=== PATIENT | female | born 1950 | race Caucasian/White ===

== ENCOUNTER 2017-11-11 23:20 | Inpatient (IN) | payer MEDICARE, OTHER ==
[2017-11-11] MEDS ORDERED: fentaNYL 100 MCG/2 ML SDV IVPUSH ONE (23:46)
--- NOTE | 2017-11-11 23:49 | EDM.PDOC ---
ED HPI GENERAL MEDICAL PROBLEM - General Chief Complaint: Lower Extremity Injury/Pain Stated Complaint: FALL INJURED RIGHT HIP AND EAR Time Seen by Provider: 11/11/17 23:47 Source of Information: Reports: Patient History Limitations: Reports: No Limitations - History of Present Illness INITIAL COMMENTS - FREE TEXT/NARRATIVE: Brought by family, coming by her and 2 daughters Chief complaint Fall, pain right hip History of present illness 66-year-old female, [place] a [place], Family reunion, she is from [facility] Unable to get up, unable to weight-bear on the right hip. She has a small bruise to the right ear as well. No chest injury no head injury otherwise. - Related Data Allergies Allergy/AdvReac Type Severity Reaction Status Date / Time No Known Allergies Allergy Verified 11/11/17 23:53 Review of Systems - Review of Systems Review Of Systems: See Below Constitutional: Reports: No Symptoms Eyes: Reports: No Symptoms Ears: Reports: Other (Small bruise on right ear) Nose: Reports: No Symptoms Mouth/Throat: Reports: No Symptoms Respiratory: Reports: No Symptoms Cardiovascular: Reports: No Symptoms GI/Abdominal: Reports: No Symptoms Genitourinary: Reports: No Symptoms Musculoskeletal: Reports: Joint Pain. Denies: Neck Pain, Back Pain, Joint Swelling (Right hip) Skin: Reports: No Symptoms Neurological: Reports: No Symptoms ED EXAM, GENERAL - Physical Exam Exam: See Below Exam Limited By: No Limitations General Appearance: Alert, Moderate Distress, Other (She's uncomfortable, lying on the stretcher) Eye Exam: Bilateral Eye: Normal Inspection Ears: Normal External Exam, Hearing Grossly Normal, Normal TMs Nose: Normal Inspection Throat/Mouth: Normal Inspection Head: Other (Small bruise)) Neck: Normal Inspection, Non-Tender, Full Range of Motion Respiratory/Chest: No Respiratory Distress, No Accessory Muscle Use, Chest Non- Tender Cardiovascular: Normal Peripheral Pulses, Regular Rate, Rhythm GI/Abdominal: Normal Bowel Sounds, Soft, Non-Tender, No Distention Extremities: Leg Pain (Right hip without swelling), Other (Unable to actively move the hip, passive movement also. Uncomfortable) Neurological: Alert, Oriented, Normal Gait Psychiatric: Normal Affect, Normal Mood Skin Exam: Warm, Dry, Intact, Normal Color, No Rash Course - Vital Signs Last Recorded V/S: Last Vital Signs Temp 36.7 C 11/11/17 23:40 Pulse 64 11/11/17 23:41 Resp 16 11/11/17 23:41 BP 174/67 H 11/11/17 23:41 Pulse Ox 95 11/11/17 23:41 - Orders/Labs/Meds Orders: Active Orders 24 hr Category Date Time Status Insert Urinary Catheter [OM.PC] Q24H Care 11/12/17 01:15 Ordered Peripheral IV Care [RC] . DIRECTED Care 11/11/17 23:45 Active Urinary Catheter Assessment [RC] ASDIRECTED Care 11/12/17 01:12 Active Chest 1V Frontal [CR] Stat Exams 11/12/17 00:01 Taken Hip Min 2V or 3V w Pelvis Rt [CR] Stat Exams 11/12/17 00:01 Taken HYDROmorphone [Dilaudid] Med 11/12/17 01:11 Once 0.5 mg IVPUSH ONETIME ONE Sodium Chloride 0.9% [Saline Flush] Med 11/11/17 23:45 Active 10 ml FLUSH ASDIRECTED PRN Peripheral IV Insertion Adult [OM.PC] Routine Oth 11/11/17 23:45 Ordered Medication Orders Sodium Chloride (Saline Flush) 10 ml FLUSH ASDIRECTED PRN PRN Reason: Keep Vein Open Last Admin: 11/11/17 23:54 Dose: 10 ml Labs: Laboratory Tests 11/11/17 11/11/17 Range/Units 23:50 23:50 WBC 7.9 (4.5-11.0) K/uL RBC 3.99 (3.30-5.50) M/uL Hgb 12.5 (12.0-15.0) g/dL Hct 37.0 (36.0-48.0) % MCV 93 (80-98) fL MCH 31 (27-31) pg MCHC 34 (32-36) % Plt Count 315 (150-400) K/uL Sodium 136 L (140-148) mmol/L Potassium 4.0 (3.6-5.2) mmol/L Chloride 101 (100-108) mmol/L Carbon Dioxide 28 (21-32) mmol/L Anion Gap 11.0 (5.0-14.0) mmol/L BUN 20 H (7-18) mg/dL Creatinine 0.9 (0.6-1.0) mg/dL Est Cr Clr Drug Dosing 56.08 mL/min Estimated GFR (MDRD) > 60 (>60) Glucose 96 (74-106) mg/dL Calcium 8.8 (8.5-10.1) mg/dL Meds: Medications Generic Name Dose Route Start Last Admin Trade Name Freq PRN Reason Stop Dose Admin Sodium Chloride 10 ml 11/11/17 23:45 11/11/17 23:54 Saline Flush FLUSH 10 ml ASDIRECTED PRN Administration Keep Vein Open Discontinued Medications Generic Name Dose Route Start Last Admin Trade Name Freq PRN Reason Stop Dose Admin Fentanyl 100 mcg 11/11/17 23:46 11/11/17 23:53 Sublimaze IVPUSH 11/11/17 23:47 100 mcg ONETIME ONE Administration - Re-Assessments/Exams Free Text/Narrative Re-Assessment/Exam: 11/11/17 23:52 66-year-old female with significant pain and limited range of motion and unable to weight-bear because of right hip injury Intravenous saline, fentanyl 100 g X-rays 11/12/17 01:13 Undisplaced transverse femoral neck fracture Welch catheter One-way chest clear Admitting labs Hydromorphone 0.5 mg IV Consult to Dr. Kaye, admit, nothing by mouth Departure - Departure Time of Disposition: 01:14 Disposition: Admitted As Inpatient 67 Condition: Good Clinical Impression: Fracture of femoral neck, right, closed Qualifiers: Encounter type: initial encounter Qualified Code(s): S72.001A - Fracture of unspecified part of neck of right femur, initial encounter for closed fracture - Discharge Information Referrals: PCP,None [Primary Care Provider] - Forms: ED Department Discharge - My Orders Last 24 Hours: My Active Orders 11/11/17 23:45 Peripheral IV Care [RC] . DIRECTED Sodium Chloride 0.9% [Saline Flush] 10 ml FLUSH ASDIRECTED PRN Peripheral IV Insertion Adult [OM.PC] Routine 11/12/17 00:01 Chest 1V Frontal [CR] Stat Hip Min 2V or 3V w Pelvis Rt [CR] Stat 11/12/17 01:11 HYDROmorphone [Dilaudid] 0.5 mg IVPUSH ONETIME ONE 11/12/17 01:12 Urinary Catheter Assessment [RC] ASDIRECTED 11/12/17 01:15 Insert Urinary Catheter [OM.PC] Q24H - Assessment/Plan Last 24 Hours: My Active Orders 11/11/17 23:45 Peripheral IV Care [RC] . DIRECTED Sodium Chloride 0.9% [Saline Flush] 10 ml FLUSH ASDIRECTED PRN Peripheral IV Insertion Adult [OM.PC] Routine 11/12/17 00:01 Chest 1V Frontal [CR] Stat Hip Min 2V or 3V w Pelvis Rt [CR] Stat 11/12/17 01:11 HYDROmorphone [Dilaudid] 0.5 mg IVPUSH ONETIME ONE 11/12/17 01:12 Urinary Catheter Assessment [RC] ASDIRECTED 11/12/17 01:15 Insert Urinary Catheter [OM.PC] Q24H
[2017-11-11] MEDS: Sodium Chloride 0.9% 10 ML Syringe FLUSH PRN (23:54)
[2017-11-12] MEDS ORDERED: HYDROmorphone 0.5 MG/0.5 ML Syringe IVPUSH ONE (01:11)
--- NOTE | 2017-11-12 01:18 | PCM.HP ---
H&P History of Present Illness - General Date of Service: 11/12/17 Source of Information: Patient History Limitations: Reports: No Limitations - History of Present Illness Initial Comments - Free Text/Narative: 66-year-old female with past medical history of depression came to the ED with the complaining of fall. [place] and landed on the right lower extremity. Since then patient unable to get up and unable to put weight on the right lower extremity. Patient reports that the pain is 4-5/10 intensity. Patient received 1 dose of fentanyl, 1 dose of Dilaudid in the ED. Patient denies any chest pain, exertional chest pain, breathing difficulty, headaches, dizziness, lightheadedness. Patient denies any head injury, loss of consciousness. Patient denies any abnormal shaking movements. Patient is Compliment with blood pressure medications. In the ED patient lab results and electrolytes are at baseline. Received pain medication and IV fluids. Other review of systems are not significant. - Related Data Allergies/Adverse Reactions: Allergies Allergy/AdvReac Type Severity Reaction Status Date / Time No Known Allergies Allergy Verified 11/11/17 23:53 Home Medications: Home Meds Calcium Carb/Magnesium Cmb #10 [Jovany-Mag] 1 tab PO DAILY 11/12/17 [History] Carbidopa/Levodopa [Carbidopa-Levodopa 25-100 Tab] 1 tab PO BEDTIME 11/12/17 [ History] Cholecalciferol (Vitamin D3) [Vitamin D3] 2,000 unit PO DAILY 11/12/17 [History] Citalopram Hydrobromide [Celexa] 20 mg PO BEDTIME 11/12/17 [History] Cranberry 500 mg PO DAILY 11/12/17 [History] Past Medical History Cardiovascular History: Reports: Heart Murmur [employer] History: Reports: Musculoskeletal History: Reports: Osteoarthritis Psychiatric History: Reports: Depression - Past Surgical History GI Surgical History: Reports: Colonoscopy Social & Family History - Family History Family Medical History: Noncontributory - Tobacco Use Smoking Status *Q: Never Smoker - Caffeine Use Caffeine Use: Reports: Coffee - Alcohol Use Days Per Week of Alcohol Use: 3 Number of Drinks Per Day: 1 Total Drinks Per Week: 3 - Recreational Drug Use Recreational Drug Use: No H&P Review of Systems - Review of Systems: Review Of Systems: See Below General: Denies: Fever, Chills HEENT: Denies: Contact Lenses, Dysphasia Pulmonary: Denies: Shortness of Breath, Wheezing, Pleuritic Chest Pain, Sputum, Hemoptysis Cardiovascular: Denies: Chest Pain, Palpitations, Dyspnea on Exertion, Orthopnea , PND, Edema, Lightheadedness Gastrointestinal: Denies: Abdominal Pain, Anorexia Genitourinary: Denies: Dysuria, Frequency Musculoskeletal: Reports: Leg Pain. Denies: Neck Pain, Shoulder Pain Skin: Denies: Cyanosis, Jaundice Hematologic/Lymphatic: Denies: Anemia, Easy Bleeding Exam - Exam Exam: See Below - Vital Signs Vital Signs: Last Vital Signs Temp 36.7 C 11/11/17 23:40 Pulse 64 11/11/17 23:41 Resp 16 11/11/17 23:41 BP 174/67 H 11/11/17 23:41 Pulse Ox 95 11/11/17 23:41 Weight: 61.235 kg - Exam General: Alert, Oriented Neck: Supple, Trachea Midline Lungs: Clear to Auscultation, Normal Respiratory Effort Cardiovascular: Regular Rate, Regular Rhythm Extremities: Leg Pain, Limited Range of Motion, Increased Warmth Skin: Warm, Dry, Intact - Patient Data Lab Results Last 24 hrs: Laboratory Results - last 24 hr 11/11/17 11/11/17 Range/Units 23:50 23:50 WBC 7.9 (4.5-11.0) K/uL RBC 3.99 (3.30-5.50) M/uL Hgb 12.5 (12.0-15.0) g/dL Hct 37.0 (36.0-48.0) % MCV 93 (80-98) fL MCH 31 (27-31) pg MCHC 34 (32-36) % Plt Count 315 (150-400) K/uL Sodium 136 L (140-148) mmol/L Potassium 4.0 (3.6-5.2) mmol/L Chloride 101 (100-108) mmol/L Carbon Dioxide 28 (21-32) mmol/L Anion Gap 11.0 (5.0-14.0) mmol/L BUN 20 H (7-18) mg/dL Creatinine 0.9 (0.6-1.0) mg/dL Est Cr Clr Drug Dosing 56.08 mL/min Estimated GFR (MDRD) > 60 (>60) Glucose 96 (74-106) mg/dL Calcium 8.8 (8.5-10.1) mg/dL Result Diagrams: 11/11/17 23:50 11/11/17 23:50 - Problem List (1) Fracture of femoral neck, right, closed SNOMED Code(s): 921384935 ICD Code: S72.001A - FRACTURE OF UNSP PART OF NECK OF RIGHT FEMUR, INIT Status: Acute Current Visit: Yes Qualifiers: Encounter type: initial encounter Qualified Code(s): S72.001A - Fracture of unspecified part of neck of right femur, initial encounter for closed fracture (2) Restless leg syndrome SNOMED Code(s): 04422570 ICD Code: G25.81 - RESTLESS LEGS SYNDROME Status: Acute Current Visit: Yes (3) Restless leg syndrome SNOMED Code(s): 65182363 ICD Code: G25.81 - RESTLESS LEGS SYNDROME Status: Acute Current Visit: Yes (4) Depression SNOMED Code(s): 03266653 ICD Code: F32.9 - MAJOR DEPRESSIVE DISORDER, SINGLE EPISODE, UNSPECIFIED Status: Acute Current Visit: Yes Problem List Initiated/Reviewed/Updated: Yes Orders Last 24hrs: Active Orders 24 hr Category Date Time Status Insert Urinary Catheter [OM.PC] Q24H Care 11/12/17 01:15 Ordered Peripheral IV Care [RC] . DIRECTED Care 11/11/17 23:45 Active Urinary Catheter Assessment [RC] ASDIRECTED Care 11/12/17 01:12 Active Chest 1V Frontal [CR] Stat Exams 11/12/17 00:01 Taken Hip Min 2V or 3V w Pelvis Rt [CR] Stat Exams 11/12/17 00:01 Taken Sodium Chloride 0.9% [Saline Flush] Med 11/11/17 23:45 Active 10 ml FLUSH ASDIRECTED PRN Peripheral IV Insertion Adult [OM.PC] Routine Oth 11/11/17 23:45 Ordered Medication Orders Sodium Chloride (Saline Flush) 10 ml FLUSH ASDIRECTED PRN PRN Reason: Keep Vein Open Last Admin: 11/11/17 23:54 Dose: 10 ml Assessment/Plan Comment:: 66-year-old female with past medical history of depression, restless leg syndrome came to the ED with c/o of fall and diagnosed with transverse non displaced right femoral neck fracture and admitted in the hospital as inpatient status. [facility] Full code Morphine 2 mg every 2 hours as needed We will consider adding Dilaudid medication based on her response Maintenance IV fluids with normal saline Nothing by mouth for now We will get UA No previous history of CAD Diet nothing by mouth for now IV fluids 125 ml/per hour normal saline CODE STATUS full code Folic catheter in place DVT prophylaxis Pass boots Note: Patient wants to transfer her admission to [facility]. As per patient request discussed case with [facility] transfer team Ph no - [phone].
[2017-11-12] MEDS: Sodium Chloride 0.9% 10 ML Syringe FLUSH PRN (01:20)
[2017-11-12] MEDS ORDERED: Ondansetron 4 MG/2 ML SDV IV PRN (01:21)
[2017-11-12] MEDS ORDERED: Pantoprazole 40 MG Vial IV SCH (01:30)
[2017-11-12] MEDS: Morphine 2 MG/ML Syringe IVPUSH PRN ×6 (02:37→17:05)
[2017-11-12] MEDS: Sodium Chloride 0.9% 1,000 ML IV SCH ×2 (02:52→10:32)
--- NOTE | 2017-11-12 08:33 | CR ---
CHEST: Portable CLINICAL HISTORY:Preop COMPARISON:None FINDINGS: Heart and pulmonary vascularity are normal. No infiltrate effusion or pneumothorax is seen . IMPRESSION: No acute cardiopulmonary process
--- NOTE | 2017-11-12 09:01 | CR ---
Hip Min 2V or 3V w Pelvis Rt CLINICAL HISTORY: Hip pain, fall FINDINGS: There is a transverse nondisplaced fracture through the femoral neck. There are some degene rative changes in the left hip with joint space narrowing. Impression: Nondisplaced fracture of the right femoral neck
--- NOTE | 2017-11-12 16:01 | PCM.DCSUM1 ---
Discharge Summary - Hospital Course Brief History: Ms. Campbell is a 66-year-old woman who was admitted through the emergency department after a fall which resulted in a right femoral neck fracture. Diagnosis: Stroke: No - Discharge Data Discharge Date: 11/12/17 Discharge Disposition: Home, Self-Care 01 Condition: Stable - Patient Summary/Data Consults: Consultations 11/12/17 01:21 Consult to Physician [CONS] Routine Consulting Provider: Srinivasa Kaye Call Completed to Consulting Physician: Jodee OT Evaluation and Treatment [CONS] Routine Please Evaluate and Treat. OT Reason for Consult: Strengthening This query below is only for informational purposes and is not editable. PT Evaluation and Treatment [CONS] Routine Please Evaluate and Treat. PT Reason for Consult: Strengthening This query below is only for informational purposes and is not editable. Hospital Course: 66-year-old female with past medical history of depression came to the ED with the complaining of fall. [place] the right lower extremity. Since then patient unable to get up and unable to put weight on the right lower extremity. Patient reports that the pain is 4-5/10 intensity. Patient received 1 dose of fentanyl, 1 dose of Dilaudid in the ED. Patient denies any chest pain, exertional chest pain, breathing difficulty, headaches, dizziness, lightheadedness. Patient denies any head injury, loss of consciousness. Patient denies any abnormal shaking movements. X-ray obtained in the emergency department shows evidence of a right femoral neck fracture. In the ED patient lab results and electrolytes are at baseline. Received pain medication and IV fluids. Other review of systems are not significant. She was admitted to the hospital and given IV fluids for hydration as well as pain medication as needed. She was seen and evaluated following morning by Dr. Rahat Kaye for an orthopedic consult who recommended surgical repair. She is a long-standing employee of the [employer] [facility] in [facility] and has requested transfer there for further evaluation and management of her hip fracture. [facility] transfer service has been contacted and Dr. Costa of the orthopedic service is agreed to accept the patient in transfer. She will be transferred by fixed wing aircraft which will be arranged by [place]. Plan will be for surgical repair of the hip fracture at [facility] in [facility] tomorrow. - Discharge Plan Home Medications: Home Meds Calcium Carb/Magnesium Cmb #10 [Jovany-Mag] 1 tab PO DAILY 11/12/17 [History] Carbidopa/Levodopa [Carbidopa-Levodopa 25-100 Tab] 1 tab PO BEDTIME 11/12/17 [ History] Cholecalciferol (Vitamin D3) [Vitamin D3] 2,000 unit PO DAILY 11/12/17 [History] Citalopram Hydrobromide [Celexa] 20 mg PO BEDTIME 11/12/17 [History] Cranberry 500 mg PO DAILY 11/12/17 [History] Referrals: PCP,None [Primary Care Provider] - - Discharge Summary/Plan Comment DC Time >30 min.: No - Patient Data Vitals - Most Recent: Last Vital Signs Temp 98.5 F 11/12/17 15:08 Pulse 70 11/12/17 15:08 Resp 18 11/12/17 15:08 BP 110/51 L 11/12/17 15:08 Pulse Ox 96 11/12/17 15:08 Weight - Most Recent: 142 lb 6.4 oz I&O - Last 24 hours: Intake & Output 11/12/17 11/12/17 11/12/17 06:59 14:59 22:59 Intake Total 240 Output Total 500 700 Balance -260 -700 Lab Results - Last 24 hrs: Laboratory Results - last 24 hr 11/11/17 11/11/17 11/12/17 Range/Units 23:50 23:50 00:01 WBC 7.9 (4.5-11.0) K/uL RBC 3.99 (3.30-5.50) M/uL Hgb 12.5 (12.0-15.0) g/dL Hct 37.0 (36.0-48.0) % MCV 93 (80-98) fL MCH 31 (27-31) pg MCHC 34 (32-36) % Plt Count 315 (150-400) K/uL Neut % (Auto) (36-66) % Lymph % (Auto) (24-44) % Brown % (Auto) (2-6) % Eos % (Auto) (2-4) % Baso % (Auto) (0-1) % Sodium 136 L (140-148) mmol/L Potassium 4.0 (3.6-5.2) mmol/L Chloride 101 (100-108) mmol/L Carbon Dioxide 28 (21-32) mmol/L Anion Gap 11.0 (5.0-14.0) mmol/L BUN 20 H (7-18) mg/dL Creatinine 0.9 (0.6-1.0) mg/dL Est Cr Clr Drug Dosing 56.08 mL/min Estimated GFR (MDRD) > 60 (>60) Glucose 96 (74-106) mg/dL Calcium 8.8 (8.5-10.1) mg/dL Total Bilirubin (0.2-1.0) mg/dL AST (15-37) U/L ALT (12-78) U/L Alkaline Phosphatase (46-116) U/L Creatine Kinase 121 (26-192) U/L Total Protein (6.4-8.2) g/dL Albumin (3.4-5.0) g/dL Globulin (2.3-3.5) g/dL Albumin/Globulin Ratio (1.2-2.2) Urine Color Urine Appearance Urine pH (4.5-8.0) Ur Specific [place] (1.008-1.030) Urine Protein (NEGATIVE) mg/dL Urine Glucose (UA) (NEGATIVE) mg/dL Urine Ketones (NEGATIVE) mg/dL Urine Occult Blood (NEGATIVE) Urine Nitrite (NEGATIVE) Urine Bilirubin (NEGATIVE) Urine Urobilinogen (NORMAL) mg/dL Ur Leukocyte Esterase (NEGATIVE) 11/12/17 11/12/17 11/12/17 Range/Units 02:09 04:45 04:45 WBC 8.2 (4.5-11.0) K/uL RBC 3.88 (3.30-5.50) M/uL Hgb 12.1 (12.0-15.0) g/dL Hct 36.1 (36.0-48.0) % MCV 93 (80-98) fL MCH 31 (27-31) pg MCHC 34 (32-36) % Plt Count 296 (150-400) K/uL Neut % (Auto) 71 H (36-66) % Lymph % (Auto) 17 L (24-44) % Brown % (Auto) 10 H (2-6) % Eos % (Auto) 2 (2-4) % Baso % (Auto) 0 (0-1) % Sodium 137 L (140-148) mmol/L Potassium 3.8 (3.6-5.2) mmol/L Chloride 103 (100-108) mmol/L Carbon Dioxide 28 (21-32) mmol/L Anion Gap 9.8 (5.0-14.0) mmol/L BUN 16 (7-18) mg/dL Creatinine 0.8 (0.6-1.0) mg/dL Est Cr Clr Drug Dosing 63.09 mL/min Estimated GFR (MDRD) > 60 (>60) Glucose 112 H (74-106) mg/dL Calcium 8.4 L (8.5-10.1) mg/dL Total Bilirubin 0.4 (0.2-1.0) mg/dL AST 22 (15-37) U/L ALT 11 L (12-78) U/L Alkaline Phosphatase 42 L (46-116) U/L Creatine Kinase (26-192) U/L Total Protein 6.6 (6.4-8.2) g/dL Albumin 3.6 (3.4-5.0) g/dL Globulin 3.0 (2.3-3.5) g/dL Albumin/Globulin Ratio 1.2 (1.2-2.2) Urine Color Yellow Urine Appearance Clear Urine pH 7.0 (4.5-8.0) Ur Specific [place] 1.010 (1.008-1.030) Urine Protein Negative (NEGATIVE) mg/dL Urine Glucose (UA) Normal (NEGATIVE) mg/dL Urine Ketones Negative (NEGATIVE) mg/dL Urine Occult Blood Negative (NEGATIVE) Urine Nitrite Negative (NEGATIVE) Urine Bilirubin Negative (NEGATIVE) Urine Urobilinogen Normal (NORMAL) mg/dL Ur Leukocyte Esterase Negative (NEGATIVE) Med Orders - Current: Current Medications Sodium Chloride (Normal Saline) 1,000 mls @ 125 mls/hr IV ASDIRECTED [facility] Last Admin: 11/12/17 10:32 Dose: 125 mls/hr Morphine Sulfate (Morphine) 2 mg IVPUSH Q2H PRN PRN Reason: Pain (severe 7-10) Last Admin: 11/12/17 13:47 Dose: 2 mg Ondansetron HCl (Zofran) 4 mg IV Q4H PRN PRN Reason: Nausea/Vomiting Pantoprazole Sodium (Protonix Iv) 40 mg IV Q24H [facility] Last Admin: 11/12/17 02:52 Dose: 40 mg Senna/Docusate Sodium (Senna Plus) 1 tab PO BID PRN PRN Reason: Constipation Last Admin: 11/12/17 13:54 Dose: 1 tab Sodium Chloride (Saline Flush) 10 ml FLUSH ASDIRECTED PRN PRN Reason: Keep Vein Open Last Admin: 11/12/17 01:20 Dose: 10 ml Discontinued Medications Fentanyl (Sublimaze) 100 mcg IVPUSH ONETIME ONE Stop: 11/11/17 23:47 Last Admin: 11/11/17 23:53 Dose: 100 mcg Hydromorphone HCl (Dilaudid) 0.5 mg IVPUSH ONETIME ONE Stop: 11/12/17 01:12 Last Admin: 11/12/17 01:20 Dose: 0.5 mg - Exam General: Reports: Alert, Oriented Lungs: Reports: Clear to Auscultation, Normal Respiratory Effort Cardiovascular: Reports: Regular Rate, Regular Rhythm, No Murmurs GI/Abdominal Exam: Soft, Non-Tender, No Organomegaly, No Distention Extremities: Other (Pain right hip and leg)
== END 2017-11-12 18:15 | DRG 536 ==
LOC: JP.ED 23:20 → JP.MS 11-12 01:21
PROVIDERS: ADMIT Family Medicine; ATTEND Hospitalist
DX: S72.001A Fracture of unspecified part of neck of right femur, initial encounter for closed fracture (principal); W18.09XA Striking against other object with subsequent fall, initial encounter; Y92.838 Other recreation area as the place of occurrence of the external cause; F32.9 Major depressive disorder, single episode, unspecified; R01.1 Cardiac murmur, unspecified; M19.90 Unspecified osteoarthritis, unspecified site; G25.81 Restless legs syndrome; Z79.899 Other long term (current) drug therapy
CPT/HCPCS: 36415; 71045 ×2; 73502 ×2; 80048; 82550; 85027; J1170; J3010; J7050 ×2; 51702; 80053; 81003; 85025; 87086; 96374; 96375; 99285-25; A9270-GY; C9113; J2270; J7030